=== PATIENT | female | born 1945 | race Caucasian/White ===

== ENCOUNTER 2020-09-03 10:55 | Day surgery (SDC) | payer MEDICARE, MEDICAID ==
[2020-09-03] VITALS (7 sets, daily range): BP systolic 120–150; BP diastolic 45–81
[~2020-09-03] VITALS: Ht 152.4 cm; Wt 58.3 kg
[2020-09-03] MEDS ORDERED: OXYC-145 PO (11:43)
[2020-09-03] MEDS ORDERED: DOCU-148 PO (11:43)
[2020-09-03] MEDS ORDERED: AMOX-580 PO (11:43)
[2020-09-03] MEDS ORDERED: APIX5TAB3 PO (11:43)
[2020-09-03] MEDS ORDERED: ASPI81TA52 PO (11:43)
[2020-09-03] MEDS ORDERED: GLIM2TAB6 PO (11:43)
[2020-09-03] MEDS ORDERED: DILT-88 PO (11:43)
[2020-09-03] MEDS ORDERED: HYDR-3965 PO (11:43)
[2020-09-03] MEDS ORDERED: HYDROcodone/acetaminophen 5mg/325mg tablet PO ONE (12:50)
[2020-09-03] MEDS ORDERED: heparin sodium, porcine/PF 100unit/ml 5ML syringe ONE (13:50)
[2020-09-03] MEDS ORDERED: fentaNYL/PF 50MCG/1 ML 2ML syringe ONE ×3 (13:51→15:24)
[2020-09-03] MEDS ORDERED: LIDOcaine 1%/PF 5ML 10 MG/ML VIAL ONE ×2 (13:51→15:20)
[2020-09-03] MEDS ORDERED: midazolam 1 mg/ML 2ml injection ONE ×2 (13:51→14:51)
[2020-09-03] MEDS ORDERED: iohexol 300 MG/1 ML 50ml polymer ONE ×2 (14:45→15:03)
[2020-09-03] MEDS ORDERED: ceFAZolin/D5W- 1GM premix 50 ML IV SCH (15:55)
--- NOTE | 2020-09-03 16:52 | NUR ---
Clarified with Dr. Brown that patient is okay to leave one hour after return time. Will continue to monitor.
== END 2020-09-03 18:05 | disposition home or self-care (01) ==
LOC: SSTAY O 10:55
PROVIDERS: ATTEND Radiology Vascular & Interventional Radiology
DX: I82.C13 Acute embolism and thrombosis of internal jugular vein, bilateral (principal); C77.0 Secondary and unspecified malignant neoplasm of lymph nodes of head, face and neck; C78.02 Secondary malignant neoplasm of left lung; J90 Pleural effusion, not elsewhere classified; Z79.899 Other long term (current) drug therapy; I10 Essential (primary) hypertension; E11.9 Type 2 diabetes mellitus without complications; M25.512 Pain in left shoulder
CPT/HCPCS: 10005; 32554; 36561; 37248; 76604; 76937; 82948; 88184; 88185; 88341; C1725; C1769; C1788; C1894; J1642; J2250; J3010; Q9967; 36415; 88173; 88305; 88342; 99152; 99153